=== PATIENT | female | born 1960 | race Caucasian/White ===

== ENCOUNTER 2019-12-08 12:44 | Outpatient (CLI) | payer BC, OTHER ==
[~2019-12-08 12:44] MED LIST: BUSP15TA PO; ESCI10TA10 PO
[2019-12-08 14:10] LABS: BASOPHILS # (AUTO) 0.03 x10^3/uL (0-0.1); BASOPHILS % (AUTO) 1 % (0-1); EOSINOPHILS # (AUTO) 0.04 x10^3/uL (0-0.4); EOSINOPHILS % (AUTO) 1 % (1-7); LYMPHOCYTES # (AUTO) 1.48 x10^3/uL (1-3.4); LYMPHOCYTES % (AUTO) 30 % (22-44); MD NO; MEAN CORPUSCULAR HEMOGLOBIN 31.8 pg (27.0-34.8); MEAN CORPUSCULAR HGB CONC 33.3 g/dL (32.4-35.8); MEAN CORPUSCULAR VOLUME 95.5 fL (80-100); MEAN PLATELET VOLUME 9.1 fL (7.4-10.4); MONOCYTES # (AUTO) 0.42 x10^3/uL (0.2-0.8); MONOCYTES % (AUTO) 8 % (2-9); NEUTROPHILS # (AUTO) 3.05 x10^3/uL (1.8-6.8); NEUTROPHILS % (AUTO) 61 % (42-75); PLATELET COUNT 191 x10^3/uL (130-400); RED BLOOD COUNT 4.88 x10^6/uL (3.82-5.3); RED CELL DISTRIBUTION WIDTH 13.8 % (9.6-15.2)
[2019-12-08 14:11] LABS: INTERNATIONAL NORMALIZED RATIO 0.96 (0.93-1.1); PROTHROMBIN TIME 10.2 Seconds (9.6-11.5)
[2019-12-08] MEDS ORDERED: LEVO100T5 PO (14:11)
[2019-12-08] MEDS ORDERED: LIOT5TAB11 PO (14:11)
[2019-12-08 14:12] LABS: ANION GAP 6 mmol/L (5-15); CALCIUM 9.2 mg/dL (8.5-10.1); CHLORIDE 108 mmol/L (98-107); CREATININE 0.96 mg/dL (0.55-1.02)
== END 2019-12-08 23:59 | disposition home or self-care (01) ==
LOC: STAR 12:44
PROVIDERS: ATTEND Orthopaedic Surgery
DX: Z01.818 Encounter for other preprocedural examination (principal); Z11.59 Encounter for screening for other viral diseases; M17.12 Unilateral primary osteoarthritis, left knee; M25.562 Pain in left knee
CPT/HCPCS: 36415; 80048; 83036; 85025; 85610; 85730; 87081; 87806; 93005; U0001; G0475

== ENCOUNTER 2019-12-12 10:06 | Observation (INO) | payer BC, OTHER ==
[~2019-12-12] VITALS: Ht 175.3 cm; Wt 119.3 kg
[~2019-12-12 10:06] MED LIST changes: +EPINEPHRINE 1 MG/ML, 1ML ONE; +KETOROLAC 60 MG/2 ML ONE; +LEVO100T5 PO; +LIOT5TAB11 PO; +ROPIvacaine/PF 0.2%, 20 ML ONE; +SODIUM CHLORIDE 0.9% 50 ML ONE; +TRANEXAMIC ACID 100 MG/ML, 10ML ONE
[2019-12-12] MEDS ORDERED: LACTATED RINGERS 1,000 ML IV SCH (10:28)
[2019-12-12] MEDS ORDERED: LIDOCAINE-MPF 1%, 2ML INFIL ONE (10:30)
[2019-12-12] MEDS ORDERED: CHLORHEXIDINE 15 ML UDC MM ONE (10:30)
[2019-12-12] MEDS ORDERED: GABAPENTIN 300 MG CAPSULE PO ONE (10:30)
[2019-12-12] MEDS ORDERED: ACETAMINOPHEN 500 MG TABLET PO ONE (10:30)
[2019-12-12 10:35] VITALS: BP 140/90
[2019-12-12] MEDS ORDERED: ACETAMINOPHEN 500 MG TABLET ONE (10:37)
[2019-12-12] MEDS ORDERED: GABAPENTIN 300 MG CAPSULE ONE (10:37)
[2019-12-12] MEDS ORDERED: CHLORHEXIDINE 15 ML UDC ONE (10:38)
[2019-12-12] MEDS ORDERED: MIDAZOLAM 1 MG/ML, 2ML ONE (11:48)
[2019-12-12] MEDS ORDERED: FENTANYL PF 250 MCG/5ML ONE ×2 (11:49→13:58)
[2019-12-12] MEDS ORDERED: PROPOFOL 10 MG/ML, 20ML ONE (11:50)
[2019-12-12] MEDS ORDERED: NEOSTIGMINE 1 MG/ML, 10ML ONE (11:50)
[2019-12-12] MEDS ORDERED: DEXAMETHASONE 4 MG/ML, 1ML ONE (11:50)
[2019-12-12] MEDS ORDERED: CEFAZOLIN 1,000 MG ONE (11:50)
[2019-12-12] MEDS ORDERED: GLYCOPYRROLATE 0.2MG/1ML, 5ML ONE (11:50)
[2019-12-12] MEDS ORDERED: ONDANSETRON 2MG/ML, 2ML ONE (11:50)
[2019-12-12] MEDS ORDERED: ROCURONIUM 10MG/ML,5ML ONE (11:50)
[2019-12-12] MEDS ORDERED: LIDOCAINE 1%, 20ML ONE (13:25)
[2019-12-12] MEDS ORDERED: TRIAMCINOLONE ACETONIDE 40 MG/ML, 1ML ONE (13:25)
[2019-12-12] MEDS ORDERED: BUPIVACAINE/PF 0.5% ONE (13:25)
[2019-12-12] MEDS ORDERED: TRANEXAMIC ACID 1,000 MG in SODIUM CHLORIDE 0.9% 100 ML IVPB ONE (13:30)
[2019-12-12] MEDS ORDERED: HYDROmorphone 1 MG/ML, 1ML INJ IVPush PRN (13:30)
[2019-12-12] MEDS ORDERED: ONDANSETRON 2MG/ML, 2ML IVPush PRN (13:30)
[2019-12-12] MEDS ORDERED: ALUMINUM/MAG/SIMETHICONE 30 ML UDC PO PRN (13:30)
[2019-12-12] MEDS ORDERED: PSYLLIUM PACKET PO PRN (13:30)
[2019-12-12] MEDS ORDERED: ONDANSETRON 4 MG TABLET PO PRN (13:30)
[2019-12-12] MEDS ORDERED: morphine SULFATE 10 MG/ML, 1ML IVPush PRN (13:30)
[2019-12-12] MEDS ORDERED: PROMETHAZINE 25 MG/ML, 1ML IVPush PRN (13:30)
[2019-12-12] MEDS ORDERED: DIPHENHYDRAMINE 50 MG CAPSULE PO PRN (13:30)
[2019-12-12] MEDS ORDERED: MEPERIDINE/PF 25MG/0.5ML IVPush PRN (13:30)
[2019-12-12] MEDS ORDERED: SENNA/DOCUSATE TABLET PO PRN (13:30)
[2019-12-12] MEDS ORDERED: ACETAMINOPHEN 650 MG/20.3 ML UDC PO PRN (13:30)
[2019-12-12] MEDS ORDERED: POLYETHYLENE GLYCOL 17 GM PACKET PO PRN (13:30)
[2019-12-12] MEDS ORDERED: hydrALAzine 20 MG/ML, 1ML IV PRN (13:30)
[2019-12-12] MEDS ORDERED: FENTANYL PF 100 MCG/2ML IV PRN (13:30)
[2019-12-12] MEDS ORDERED: MAGNESIUM HYDROXIDE 8%, 30ML UDC PO PRN (13:30)
[2019-12-12] MEDS ORDERED: DIPHENHYDRAMINE 50 MG/ML, 1ML IVPush PRN (13:30)
[2019-12-12] MEDS ORDERED: LABETALOL 5MG/ML, 20ML IV PRN (13:30)
[2019-12-12] MEDS ORDERED: HALOPERIDOL 5 MG/ML IV PRN (13:30)
[2019-12-12] MEDS ORDERED: OXYcodone 5 MG/5 ML ORAL.SOL UDC PO PRN (13:30)
[2019-12-12] MEDS ORDERED: FENTANYL PF 100 MCG/2ML ONE ×2 (14:18→14:40)
[2019-12-12] MEDS ORDERED: HYDROmorphone 1 MG/ML, 1ML INJ ONE (15:28)
[2019-12-12] MEDS ORDERED: OXYcodone 5 MG/5 ML ORAL.SOL UDC ONE (15:29)
[2019-12-12] MEDS: HYDROmorphone 1 MG/ML, 1ML INJ IVPush PRN ×2 (15:32→15:43)
[2019-12-12] MEDS: ASPIRIN 81 MG TABLET EC PO SCH ×2 (18:06→20:30)
[2019-12-12 18:23] VITALS: BP 119/79
[2019-12-12] MEDS: OXYcodone IR 5MG TABLET PO PRN (20:29)
[2019-12-12] MEDS: POTASSIUM CHLORIDE 20 MEQ in D5%-0.45% NACL 1,000 ML IV SCH (20:30)
[2019-12-12] MEDS: DOCUSATE 100 MG CAPSULE PO SCH (20:30)
[2019-12-12] MEDS ORDERED: AMITRIPTYLINE 10 MG TABLET PO SCH (21:00)
[2019-12-12] MEDS: CEFAZOLIN PMX 1GM/50ML 50 ML IVPB SCH (22:01)
[2019-12-12] MEDS: KETOROLAC 30 MG/1 ML IV SCH (22:01)
[2019-12-13 00:19] VITALS: BP 106/67
[2019-12-13 04:59] VITALS: BP 99/62
[2019-12-13] MEDS ORDERED: DEXAMETHASONE 4 MG/ML, 1ML IVPush ONE (06:00)
[2019-12-13] MEDS ORDERED: LEVOTHYROXINE 100 MCG TABLET PO SCH (06:00)
[2019-12-13] MEDS ORDERED: LIOTHYRONINE 5 MCG TABLET ONE (06:31)
[2019-12-13] MEDS: KETOROLAC 30 MG/1 ML IV SCH (06:33)
[2019-12-13] MEDS: CEFAZOLIN PMX 1GM/50ML 50 ML IVPB SCH (06:33)
[2019-12-13] MEDS: POTASSIUM CHLORIDE 20 MEQ in D5%-0.45% NACL 1,000 ML IV SCH (07:06)
[2019-12-13 07:20] VITALS: BP 95/61
[2019-12-13] MEDS: ASPIRIN 81 MG TABLET EC PO SCH (07:51)
[2019-12-13] MEDS: OXYcodone IR 5MG TABLET PO PRN (07:51)
[2019-12-13] MEDS: DOCUSATE 100 MG CAPSULE PO SCH (07:51)
[2019-12-13] MEDS ORDERED: LIOTHYRONINE 5 MCG TABLET PO SCH (09:00)
[2019-12-13] MEDS ORDERED: TAMSULOSIN 0.4 MG CAP.ER.24H PO SCH (09:00)
[2019-12-13] MEDS ORDERED: ASPI81TA45 PO (09:10)
== END 2019-12-13 12:00 | disposition home or self-care (01) ==
LOC: OR 10:06 → ORIP 13:10 → 4NE 16:22 → DCLOUNGE 12-13 11:43
PROVIDERS: ADMIT Orthopaedic Surgery; ATTEND Orthopaedic Surgery
DX: M17.0 Bilateral primary osteoarthritis of knee (principal); E03.9 Hypothyroidism, unspecified; Z85.42 Personal history of malignant neoplasm of other parts of uterus; Z85.41 Personal history of malignant neoplasm of cervix uteri
CPT/HCPCS: 20610; 27447; 36415; 73560; 85014; 85018; 96365; 96366; 96375; 96376; 97110; 97161; C1713; C1776; G0378; J0171; J0690; J1100; J1170; J1885; J2250; J2405; J2704; J2710; J2795; J3010; J3301; J3480; J3490; J7120; S0020

== ENCOUNTER → 2020-02-22 | Outpatient (CLI) | payer OTHER ==
[~2020-02-22] MED LIST changes: +ASPI81TA45 PO; -EPINEPHRINE 1 MG/ML, 1ML ONE; -KETOROLAC 60 MG/2 ML ONE; +Meloxicam PO; -ROPIvacaine/PF 0.2%, 20 ML ONE; -SODIUM CHLORIDE 0.9% 50 ML ONE; -TRANEXAMIC ACID 100 MG/ML, 10ML ONE; +Tramadol PO; +Trazodone PO; +hydrocodone PO
[2020-02-22 16:32] LABS: BASOPHILS # (AUTO) 0.03 x10^3/uL (0-0.1); BASOPHILS % (AUTO) 1 % (0-1); EOSINOPHILS # (AUTO) 0.03 x10^3/uL (0-0.4); EOSINOPHILS % (AUTO) 1 % (1-7); LYMPHOCYTES # (AUTO) 1.37 x10^3/uL (1-3.4); LYMPHOCYTES % (AUTO) 25 % (22-44); MD NO; MEAN CORPUSCULAR HEMOGLOBIN 32.4 pg (27.0-34.8); MEAN CORPUSCULAR HGB CONC 32.7 g/dL (32.4-35.8); MEAN CORPUSCULAR VOLUME 98.9 fL (80-100); MEAN PLATELET VOLUME 7.9 fL (7.4-10.4); MONOCYTES # (AUTO) 0.46 x10^3/uL (0.2-0.8); MONOCYTES % (AUTO) 9 % (2-9); NEUTROPHILS # (AUTO) 3.52 x10^3/uL (1.8-6.8); NEUTROPHILS % (AUTO) 65 % (42-75); PLATELET COUNT 211 x10^3/uL (130-400); RED BLOOD COUNT 4.51 x10^6/uL (3.82-5.3); RED CELL DISTRIBUTION WIDTH 13.8 % (9.6-15.2)
[2020-02-22 16:36] LABS: INTERNATIONAL NORMALIZED RATIO 0.97 (0.93-1.1)
[2020-02-22 16:37] LABS: ANION GAP 5 mmol/L (5-15); CALCIUM 8.7 mg/dL (8.5-10.1); CHLORIDE 105 mmol/L (98-107); CREATININE 0.88 mg/dL (0.55-1.02)
== END | disposition home or self-care (01) ==
LOC: STAR 15:41
PROVIDERS: ATTEND Orthopaedic Surgery
DX: Z01.818 Encounter for other preprocedural examination (principal); M17.11 Unilateral primary osteoarthritis, right knee
CPT/HCPCS: 36415; 80048; 83036; 85025; 85610; 85730; 87081; 87806; G0475

== ENCOUNTER 2020-03-05 07:50 | Observation (INO) | payer OTHER ==
[~2020-03-05] VITALS: Ht 175.3 cm; Wt 113.0 kg
[~2020-03-05 07:50] MED LIST changes: +EPINEPHRINE 1 MG/ML, 1ML ONE; +KETOROLAC 60 MG/2 ML ONE; +ROPIvacaine/PF 0.2%, 20 ML ONE; +SODIUM CHLORIDE 0.9% 100 ML ONE; +TRANEXAMIC ACID 100 MG/ML, 10ML ONE; +VANCOMYCIN 1,000 MG ONE
[2020-03-05] MEDS ORDERED: CHLORHEXIDINE 15 ML UDC MM STA (08:02)
[2020-03-05] MEDS ORDERED: ACETAMINOPHEN 500 MG TABLET PO ONE (08:30)
[2020-03-05] MEDS ORDERED: GABAPENTIN 300 MG CAPSULE PO ONE (08:30)
[2020-03-05] MEDS: LACTATED RINGERS 1,000 ML IV SCH ×2 (08:44→14:37)
[2020-03-05] MEDS ORDERED: LABETALOL 5MG/ML, 20ML IV PRN (09:00)
[2020-03-05] MEDS ORDERED: MEPERIDINE/PF 25MG/0.5ML IVPush PRN (09:00)
[2020-03-05] MEDS ORDERED: OXYcodone 5 MG/5 ML ORAL.SOL UDC PO PRN (09:00)
[2020-03-05] MEDS ORDERED: ONDANSETRON 2MG/ML, 2ML IVPush PRN ×2 (09:00→11:00)
[2020-03-05] MEDS ORDERED: EPHEDRINE 50 MG/ML, 1ML IVPush PRN (09:00)
[2020-03-05] MEDS ORDERED: PROMETHAZINE 25 MG/ML, 1ML IVPush PRN (09:00)
[2020-03-05] MEDS ORDERED: hydrALAzine 20 MG/ML, 1ML IV PRN (09:00)
[2020-03-05] MEDS ORDERED: BUPIVACAINE/PF 0.5% ONE ×2 (09:10→09:11)
[2020-03-05] MEDS ORDERED: FENTANYL PF 250 MCG/5ML ONE ×2 (09:10→11:09)
[2020-03-05] MEDS ORDERED: MIDAZOLAM 1 MG/ML, 2ML ONE (09:10)
[2020-03-05] MEDS ORDERED: DIPHENHYDRAMINE 50 MG/ML, 1ML IVPush PRN (11:00)
[2020-03-05] MEDS ORDERED: ACETAMINOPHEN 650 MG/20.3 ML UDC PO PRN (11:00)
[2020-03-05] MEDS ORDERED: DIPHENHYDRAMINE 25 MG CAPSULE PO PRN (11:00)
[2020-03-05] MEDS ORDERED: SENNA/DOCUSATE TABLET PO PRN (11:00)
[2020-03-05] MEDS ORDERED: ALUMINUM/MAG/SIMETHICONE 30 ML UDC PO PRN (11:00)
[2020-03-05] MEDS ORDERED: ACETAMINOPHEN 325 MG TABLET PO PRN (11:00)
[2020-03-05] MEDS ORDERED: MAGNESIUM HYDROXIDE 8%, 30ML UDC PO PRN (11:00)
[2020-03-05] MEDS ORDERED: POLYETHYLENE GLYCOL 17 GM PACKET PO PRN (11:00)
[2020-03-05] MEDS ORDERED: ONDANSETRON 4 MG TABLET PO PRN (11:00)
[2020-03-05] MEDS ORDERED: PROPOFOL 10 MG/ML, 20ML ONE (11:11)
[2020-03-05] MEDS ORDERED: CEFAZOLIN 1,000 MG ONE (11:11)
[2020-03-05] MEDS ORDERED: DEXAMETHASONE 4 MG/ML, 1ML ONE (11:11)
[2020-03-05] MEDS ORDERED: SUCCINYLCHOLINE 20 MG/ML, 10ML ONE (11:11)
[2020-03-05] MEDS ORDERED: ONDANSETRON 2MG/ML, 2ML ONE (11:11)
[2020-03-05] MEDS ORDERED: FENTANYL PF 100 MCG/2ML ONE ×3 (11:52→12:38)
[2020-03-05] MEDS ORDERED: HYDROmorphone 1 MG/ML, 1ML INJ ONE ×2 (12:18→12:50)
[2020-03-05] MEDS: FENTANYL PF 100 MCG/2ML IV PRN ×4 (12:20→12:48)
[2020-03-05] MEDS: HYDROmorphone 1 MG/ML, 1ML INJ IVPush PRN ×5 (12:21→23:12)
[2020-03-05] MEDS ORDERED: TRANEXAMIC ACID 1,000 MG in SODIUM CHLORIDE 0.9% 100 ML IVPB ONE (12:32)
[2020-03-05] MEDS ORDERED: OXYcodone 5 MG/5 ML ORAL.SOL UDC ONE (12:38)
[2020-03-05 14:25] VITALS: BP 130/80
[2020-03-05] MEDS: KETOROLAC 30 MG/1 ML IV SCH ×2 (17:11→23:16)
[2020-03-05] MEDS: OXYcodone IR 5MG TABLET PO PRN ×2 (17:12→21:44)
[2020-03-05] MEDS: ASPIRIN 81 MG TABLET EC PO SCH (18:25)
[2020-03-05 19:30] VITALS: BP 116/75
[2020-03-05] MEDS: POTASSIUM CHLORIDE 20 MEQ in D5%-0.45% NACL 1,000 ML IV SCH (19:30)
[2020-03-05] MEDS: DOCUSATE 100 MG CAPSULE PO SCH (20:15)
[2020-03-05] MEDS: CEFAZOLIN PMX 1GM/50ML 50 ML IVPB SCH (20:15)
[2020-03-06 01:01] VITALS: BP 117/64
[2020-03-06] MEDS: OXYcodone IR 5MG TABLET PO PRN ×3 (01:48→09:58)
[2020-03-06] MEDS: CEFAZOLIN PMX 1GM/50ML 50 ML IVPB SCH (04:39)
[2020-03-06] MEDS: HYDROmorphone 1 MG/ML, 1ML INJ IVPush PRN (04:39)
[2020-03-06] MEDS: POTASSIUM CHLORIDE 20 MEQ in D5%-0.45% NACL 1,000 ML IV SCH (05:10)
[2020-03-06 05:42] VITALS: BP 114/75
[2020-03-06] MEDS ORDERED: LEVOTHYROXINE 100 MCG TABLET PO SCH (06:00)
[2020-03-06] MEDS ORDERED: DEXAMETHASONE 4 MG/ML, 1ML IVPush ONE (06:00)
[2020-03-06] MEDS: KETOROLAC 30 MG/1 ML IV SCH (07:27)
[2020-03-06 08:40] VITALS: BP 110/77
[2020-03-06] MEDS: DOCUSATE 100 MG CAPSULE PO SCH (08:57)
[2020-03-06] MEDS: ASPIRIN 81 MG TABLET EC PO SCH (08:57)
[2020-03-06] MEDS ORDERED: LIOTHYRONINE 5 MCG TABLET PO SCH (09:00)
[2020-03-06] MEDS ORDERED: TAMSULOSIN 0.4 MG CAP.ER.24H PO SCH (09:00)
[2020-03-06] MEDS ORDERED: HYDR-3246 PO (10:02)
[2020-03-06] MEDS ORDERED: CYCL5TAB PO (10:03)
[2020-03-06 10:18] VITALS: BP 105/69
== END 2020-03-06 10:43 | disposition home or self-care (01) ==
LOC: OUT 07:50 → ORIP 10:34 → 4NE 13:27 → DCLOUNGE 03-06 10:36
PROVIDERS: ADMIT Orthopaedic Surgery; ATTEND Orthopaedic Surgery
DX: M17.11 Unilateral primary osteoarthritis, right knee (principal); Z20.828 Contact with and (suspected) exposure to other viral communicable diseases; E03.9 Hypothyroidism, unspecified; Z79.899 Other long term (current) drug therapy; Z96.651 Presence of right artificial knee joint
CPT/HCPCS: 27447; 36415; 73560; 85014; 85018; 87635; 96365; 96366; 96375; 96376; 97161; C1713; C1776; G0378; J0171; J0330; J0690; J1100; J1170; J1885; J2250; J2405; J2704; J2795; J3010; J7120; S0020; J3370

== ENCOUNTER 2021-03-13 15:19 | Outpatient (CLI) | payer OTHER ==
[~2021-03-13 15:19] MED LIST changes: +CYCL5TAB PO; -EPINEPHRINE 1 MG/ML, 1ML ONE; +HYDR-3248 PO; -KETOROLAC 60 MG/2 ML ONE; -ROPIvacaine/PF 0.2%, 20 ML ONE; -SODIUM CHLORIDE 0.9% 100 ML ONE; -TRANEXAMIC ACID 100 MG/ML, 10ML ONE; -VANCOMYCIN 1,000 MG ONE
[2021-03-13] MEDS ORDERED: OXYC5CAP2 PO (16:00)
[2021-03-13] MEDS ORDERED: IBUP-1223 PO (16:00)
[2021-03-13 16:29] LABS: ALANINE AMINOTRANSFERASE 12 U/L (12-78); ANION GAP 2 mmol/L (5-15); CHLORIDE 107 mmol/L (98-107); CREATININE 0.78 mg/dL (0.55-1.02)
[2021-03-13 16:32] LABS: ALKALINE PHOSPHATASE 90 U/L (45-117); BILIRUBIN,TOTAL 0.4 mg/dL (0.2-1.0)
== END 2021-03-13 23:59 | disposition home or self-care (01) ==
LOC: STAR 15:19
PROVIDERS: ATTEND Orthopaedic Surgery
DX: Z01.818 Encounter for other preprocedural examination (principal); T84.038A Mechanical loosening of other internal prosthetic joint, initial encounter; Z96.659 Presence of unspecified artificial knee joint
CPT/HCPCS: 36415; 80053; 87081

== ENCOUNTER 2021-03-25 12:06 | Inpatient (IN) | payer OTHER ==
[~2021-03-25] VITALS: Ht 177.8 cm; Wt 130.2 kg
[~2021-03-25 12:06] MED LIST changes: +IBUP-1223 PO; +OXYC5CAP2 PO; +TRANEXAMIC ACID 100 MG/ML, 10ML ONE
[2021-03-25] MEDS ORDERED: EPINEPHRINE 1 MG/ML, 1ML ONE (12:09)
[2021-03-25] MEDS ORDERED: KETOROLAC 60 MG/2 ML ONE (12:09)
[2021-03-25] MEDS ORDERED: SODIUM CHLORIDE 0.9% 50 ML ONE (12:09)
[2021-03-25] MEDS ORDERED: ROPIvacaine/PF 0.2%, 20 ML ONE (12:09)
[2021-03-25] MEDS ORDERED: TRANEXAMIC ACID 100 MG/ML, 10ML ONE ×3 (12:09→13:57)
[2021-03-25] MEDS ORDERED: MIDAZOLAM 1 MG/ML, 2ML ONE (12:28)
[2021-03-25] MEDS ORDERED: FENTANYL PF 250 MCG/5ML ONE (12:28)
[2021-03-25] MEDS ORDERED: GABAPENTIN 300 MG CAPSULE PO ONE (12:30)
[2021-03-25] MEDS ORDERED: CHLORHEXIDINE 15 ML UDC PO ONE (12:30)
[2021-03-25] MEDS ORDERED: ACETAMINOPHEN 500 MG TABLET PO ONE (12:30)
[2021-03-25] MEDS ORDERED: LACTATED RINGERS 1,000 ML IV SCH (12:30)
[2021-03-25] MEDS ORDERED: VANCOMYCIN 2,500 MG in SODIUM CHLORIDE 0.9% 500 ML IV ONE (12:30)
[2021-03-25] MEDS ORDERED: VANCOMYCIN PER PHARMACY MC PRN (12:30)
[2021-03-25] MEDS ORDERED: PROPOFOL 10 MG/ML, 20ML ONE (12:35)
[2021-03-25] MEDS ORDERED: CEFAZOLIN 1,000 MG ONE (12:35)
[2021-03-25] MEDS ORDERED: GLYCOPYRROLATE 0.2MG/1ML, 5ML ONE (12:35)
[2021-03-25] MEDS ORDERED: ONDANSETRON 2MG/ML, 2ML ONE (12:35)
[2021-03-25] MEDS ORDERED: ROCURONIUM 10MG/ML,5ML ONE (12:35)
[2021-03-25] MEDS ORDERED: NEOSTIGMINE 1 MG/ML, 10ML ONE (12:35)
[2021-03-25] MEDS ORDERED: DEXAMETHASONE 4 MG/ML, 1ML ONE (12:35)
[2021-03-25 13:24] VITALS: BP 115/77
[2021-03-25] MEDS ORDERED: ONDANSETRON 2MG/ML, 2ML IVPush PRN (13:30)
[2021-03-25] MEDS ORDERED: ALUMINUM/MAG/SIMETHICONE 30 ML UDC PO PRN (13:30)
[2021-03-25] MEDS ORDERED: ONDANSETRON 4 MG TABLET PO PRN (13:30)
[2021-03-25] MEDS ORDERED: METHYLENE BLUE 50 MG/10 ML AMP ONE (14:57)
[2021-03-25] MEDS ORDERED: VANCOMYCIN 1,000 MG ONE (14:58)
[2021-03-25] MEDS ORDERED: ALBUTEROL SULFATE 2.5 MG/3 ML NPPB PRN (15:00)
[2021-03-25] MEDS ORDERED: GENTAMICIN 80 MG/2 ML ONE (15:02)
[2021-03-25] MEDS ORDERED: MEPERIDINE/PF 50 MG/ML ONE ×2 (15:27→16:09)
[2021-03-25] MEDS ORDERED: GENTAMICIN 80 MG/2 ML IV ONE (15:30)
[2021-03-25] MEDS ORDERED: FENTANYL PF 100 MCG/2ML ONE (16:22)
[2021-03-25] MEDS ORDERED: ACETAMINOPHEN 650 MG/20.3 ML UDC ONE (16:22)
[2021-03-25] MEDS ORDERED: OXYcodone 5 MG/5 ML ORAL.SOL UDC ONE (16:22)
[2021-03-25] MEDS: FENTANYL PF 100 MCG/2ML IV PRN ×3 (16:58→17:10)
[2021-03-25] MEDS ORDERED: DIPHENHYDRAMINE 50 MG/ML, 1ML IVPush PRN (17:00)
[2021-03-25] MEDS ORDERED: SENNA/DOCUSATE TABLET PO PRN (17:00)
[2021-03-25] MEDS ORDERED: MEPERIDINE/PF 25MG/0.5ML IVPush PRN (17:00)
[2021-03-25] MEDS ORDERED: OXYcodone 5 MG/5 ML ORAL.SOL UDC PO PRN (17:00)
[2021-03-25] MEDS ORDERED: PSYLLIUM PACKET PO PRN (17:00)
[2021-03-25] MEDS ORDERED: HYDROmorphone 1 MG/ML, 1ML INJ IVPush PRN ×2 (17:00)
[2021-03-25] MEDS ORDERED: METOCLOPRAMIDE 5 MG/ML, 2ML IVPush PRN (17:00)
[2021-03-25] MEDS ORDERED: PROMETHAZINE 25 MG/ML, 1ML IVPush PRN (17:00)
[2021-03-25] MEDS ORDERED: LABETALOL 5MG/ML, 20ML IV PRN (17:00)
[2021-03-25] MEDS ORDERED: MAGNESIUM HYDROXIDE 8%, 30ML UDC PO PRN (17:00)
[2021-03-25] MEDS ORDERED: POLYETHYLENE GLYCOL 17 GM PACKET PO PRN (17:00)
[2021-03-25] MEDS ORDERED: PROMETHAZINE 25 MG/ML, 1ML IM PRN (17:00)
[2021-03-25 18:30] VITALS: BP 120/77
[2021-03-25] MEDS: GABAPENTIN 300 MG CAPSULE PO SCH ×2 (18:40→19:58)
[2021-03-25] MEDS: POTASSIUM CHLORIDE 20 MEQ in D5%-0.45% NACL 1,000 ML IV SCH (18:40)
[2021-03-25] MEDS: DOCUSATE 100 MG CAPSULE PO SCH (21:06)
[2021-03-25] MEDS: CEFAZOLIN PMX 1GM/50ML 50 ML IVPB SCH (21:06)
[2021-03-25] MEDS: KETOROLAC 30 MG/1 ML IV SCH (21:06)
[2021-03-25] MEDS: OXYcodone IR 5MG TABLET PO PRN (21:40)
[2021-03-25 22:36] VITALS: BP 114/73
[2021-03-26] MEDS ORDERED: VANCOMYCIN PMX 1GM/200ML 200 ML IVPB ONE (03:00)
[2021-03-26] MEDS ORDERED: VANCOMYCIN 1,000 MG in SODIUM CHLORIDE 0.9% 100 ML IV ONE (03:00)
[2021-03-26 03:46] VITALS: BP 98/62
[2021-03-26] MEDS: POTASSIUM CHLORIDE 20 MEQ in D5%-0.45% NACL 1,000 ML IV SCH ×2 (04:36→12:54)
[2021-03-26] MEDS: CEFAZOLIN PMX 1GM/50ML 50 ML IVPB SCH (04:46)
[2021-03-26] MEDS: KETOROLAC 30 MG/1 ML IV SCH ×2 (04:47→12:33)
[2021-03-26] MEDS: ASPIRIN 81 MG TABLET EC PO SCH ×3 (05:30→20:49)
[2021-03-26] MEDS: LEVOTHYROXINE 100 MCG TABLET PO SCH (05:30)
[2021-03-26] MEDS ORDERED: DEXAMETHASONE 4 MG/ML, 1ML IVPush ONE (06:00)
[2021-03-26 08:04] VITALS: BP 107/66
[2021-03-26] MEDS: TAMSULOSIN 0.4 MG CAP.ER.24H PO SCH (08:40)
[2021-03-26] MEDS: DOCUSATE 100 MG CAPSULE PO SCH ×2 (08:40→20:49)
[2021-03-26] MEDS: LIOTHYRONINE 5 MCG TABLET PO SCH (08:40)
[2021-03-26] MEDS: GABAPENTIN 300 MG CAPSULE PO SCH ×3 (08:40→20:49)
[2021-03-26] MEDS: OXYcodone IR 5MG TABLET PO PRN ×3 (08:49→20:49)
[2021-03-26] MEDS ORDERED: PHARMACOKINETIC MONITORING MC PRN (10:30)
[2021-03-26] MEDS ORDERED: PHARMACOKINETIC CONSULTATION MC ONE (10:30)
[2021-03-26] MEDS ORDERED: VANCOMYCIN 1,800 MG in SODIUM CHLORIDE 0.9% 250 ML IV SCH (11:00)
[2021-03-26 13:19] VITALS: BP 96/59
[2021-03-26] MEDS: DAPTOMYCIN IVPB SCH (18:19)
[2021-03-26] MEDS: SODIUM CHLORIDE 0.9% IVPB SCH (18:19)
[2021-03-26 20:47] VITALS: BP 94/59
[2021-03-26] MEDS: ACETAMINOPHEN 650 MG/20.3 ML UDC PO PRN (20:51)
[2021-03-27] MEDS: POTASSIUM CHLORIDE 20 MEQ in D5%-0.45% NACL 1,000 ML IV SCH ×2 (00:48→10:54)
[2021-03-27] MEDS: OXYcodone IR 5MG TABLET PO PRN ×5 (01:14→20:38)
[2021-03-27] MEDS: ACETAMINOPHEN 650 MG/20.3 ML UDC PO PRN ×4 (01:14→20:38)
[2021-03-27 01:17] VITALS: BP 105/62
[2021-03-27 05:14] LABS: BASOPHILS % (AUTO) 1 % (0-1); EOSINOPHILS % (AUTO) 0 % (1-7); HCT (SEDRATE) 27.2 % (34.6-47.8); LYMPHOCYTES % (AUTO) 17 % (22-44); MEAN CORPUSCULAR HGB CONC 33.8 g/dL (32.4-35.8); MEAN PLATELET VOLUME 7.2 fL (7.4-10.4); MONOCYTES % (AUTO) 10 % (2-9); NEUTROPHILS % (AUTO) 73 % (42-75); PLATELET COUNT 270 x10^3/uL (130-400); RED BLOOD COUNT 3.08 x10^6/uL (3.82-5.3); RED CELL DISTRIBUTION WIDTH 14.3 % (9.6-15.2)
[2021-03-27] MEDS: LEVOTHYROXINE 100 MCG TABLET PO SCH (05:18)
[2021-03-27 05:23] LABS: ALBUMIN 2.4 g/dL (3.4-5.0); ANION GAP 5 mmol/L (5-15); CALCIUM 8.9 mg/dL (8.5-10.1); CHLORIDE 106 mmol/L (98-107)
[2021-03-27 05:37] LABS: ALANINE AMINOTRANSFERASE 12 U/L (12-78); ALKALINE PHOSPHATASE 65 U/L (45-117); BILIRUBIN,TOTAL 0.3 mg/dL (0.2-1.0); CREATININE 0.81 mg/dL (0.55-1.02); TOTAL PROTEIN 6.2 g/dL (6.4-8.2)
[2021-03-27 08:10] VITALS: BP 94/58
[2021-03-27] MEDS: TAMSULOSIN 0.4 MG CAP.ER.24H PO SCH ×2 (09:00→09:05)
[2021-03-27] MEDS: LIOTHYRONINE 5 MCG TABLET PO SCH (09:03)
[2021-03-27] MEDS: DOCUSATE 100 MG CAPSULE PO SCH ×2 (09:03→20:38)
[2021-03-27] MEDS: GABAPENTIN 300 MG CAPSULE PO SCH ×3 (09:05→20:38)
[2021-03-27] MEDS: ASPIRIN 81 MG TABLET EC PO SCH ×2 (09:06→20:38)
[2021-03-27 14:04] VITALS: BP 113/67
[2021-03-27] MEDS: SODIUM CHLORIDE FLUSH 10ML SYR IVF SCH ×2 (17:30→20:39)
[2021-03-27] MEDS: SODIUM CHLORIDE 0.9% IVPB SCH (18:41)
[2021-03-27] MEDS: DAPTOMYCIN IVPB SCH (18:41)
[2021-03-27 19:57] VITALS: BP 109/68
[2021-03-28] MEDS: ACETAMINOPHEN 650 MG/20.3 ML UDC PO PRN ×2 (00:52→04:40)
[2021-03-28] MEDS: OXYcodone IR 5MG TABLET PO PRN ×3 (00:52→13:53)
[2021-03-28 02:02] VITALS: BP 120/70
[2021-03-28] MEDS: LEVOTHYROXINE 100 MCG TABLET PO SCH (04:40)
[2021-03-28] MEDS: TAMSULOSIN 0.4 MG CAP.ER.24H PO SCH (09:00)
[2021-03-28] MEDS: DOCUSATE 100 MG CAPSULE PO SCH (09:23)
[2021-03-28] MEDS: GABAPENTIN 300 MG CAPSULE PO SCH ×2 (09:23→16:26)
[2021-03-28] MEDS: ASPIRIN 81 MG TABLET EC PO SCH (09:23)
[2021-03-28] MEDS: LIOTHYRONINE 5 MCG TABLET PO SCH (09:23)
[2021-03-28] MEDS: SODIUM CHLORIDE FLUSH 10ML SYR IVF SCH (09:24)
[2021-03-28 09:25] VITALS: BP 117/76
[2021-03-28 14:40] VITALS: BP 97/62
[2021-03-28] MEDS: DAPTOMYCIN IVPB SCH ×3 (15:24→16:41)
[2021-03-28] MEDS: SODIUM CHLORIDE 0.9% IVPB SCH ×3 (15:24→16:41)
[2021-03-28] MEDS ORDERED: CATHFLO-ALTEPLASE 2 MG/2 ML CATHFLUSH ONE (16:00)
[2021-03-28 17:21] VITALS: BP 132/80
== END 2021-03-28 17:39 | disposition home or self-care (01) | DRG 466 ==
LOC: OBSVTOIN 12:06 → INTOOBSV 12:06 → ORIP 12:06 → 4NE 18:07
PROVIDERS: ADMIT Orthopaedic Surgery; ATTEND Orthopaedic Surgery
PROC: 0SRC0EZ Replacement of Right Knee Joint with Articulating Spacer, Open Approach (ICD-10-PCS; 2021-03-25)
PROC: 0SPC0JZ Removal of Synthetic Substitute from Right Knee Joint, Open Approach (ICD-10-PCS; principal; 2021-03-25 15:00)
PROC: 02HV33Z Insertion of Infusion Device into Superior Vena Cava, Percutaneous Approach (ICD-10-PCS; 2021-03-26)
PROC: B5181ZA Fluoroscopy of Superior Vena Cava using Low Osmolar Contrast, Guidance (ICD-10-PCS; 2021-03-26)
PROC: B548ZZA Ultrasonography of Superior Vena Cava, Guidance (ICD-10-PCS; 2021-03-26)
DX: T84.53XA Infection and inflammatory reaction due to internal right knee prosthesis, initial encounter (principal); E43 Unspecified severe protein-calorie malnutrition; T84.032A Mechanical loosening of internal right knee prosthetic joint, initial encounter; E03.9 Hypothyroidism, unspecified; Y79.2 Prosthetic and other implants, materials and accessory orthopedic devices associated with adverse incidents; Y83.1 Surgical operation with implant of artificial internal device as the cause of abnormal reaction of the patient, or of later complication, without mention of misadventure at the time of the procedure; Z96.652 Presence of left artificial knee joint; Z96.651 Presence of right artificial knee joint; Z20.822 Contact with and (suspected) exposure to COVID-19; Z79.890 Hormone replacement therapy; Z90.49 Acquired absence of other specified parts of digestive tract; Z90.710 Acquired absence of both cervix and uterus
CPT/HCPCS: 36415; 36573; 80053; 82550; 82565; 85014; 85018; 85025; 85651; 85810; 86140; 87015; 87040; 87070; 87075; 87077; 87102; 87116; 87176; 87186; 87205; 87206; 87635; 88112; 88305; 89050; 89060; C1713; G0378; J0171; J0690; J0878; J1100; J1885; J2175; J2250; J2405; J2704; J2710; J2795; J2997; J3010; J3370; J3480; Q9968; C1751; C1776; J1580; J7040; J7050; J7120